=== PATIENT | female | born 1950 | race Caucasian/White ===

== ENCOUNTER 2017-11-06 23:11 | Emergency (ER) | payer MEDICARE, OTHER ==
[2017-11-06] MEDS ORDERED: ALBUTEROL NEBULIZED 2.5 MG/3 ML INHALATION STA (23:46)
--- NOTE | 2017-11-06 23:46 | ED ---
URI HPI - General Chief Complaint: Upper Respiratory Infection Stated Complaint: cough Time Seen by Provider: 11/06/17 23:24 Source: patient Mode of arrival: ambulatory Limitations: no limitations - History of Present Illness Initial Comments: This patient is a 67-year-old woman who presents to be evaluated for a cough. She states it has been going on for 2 weeks now. She states there is some occasional yellowish sputum. She denies associated fever or chills. She is not having any chest pain and there is not really any dyspnea associated. She did see her physician and was given guaifenesin with codeine syrup which she states only decreased a cough minimally. She states that she has gone through to hold bottles of this without much relief. MD Complaint: cough Onset/Timin -: week(s) Severity: moderate Consistency: constant Improves With: nothing Worsens With: nothing Associated Symptoms: denies other symptoms Treatments Prior to Arrival: "cold medicine" - Related Data Home Medications Medication Instructions Recorded Confirmed ALPRAZolam [Xanax] 0.25 mg PO BID PRN 11/06/17 11/06/17 Codeine Phosphate/Guaifenesin 5 ml PO Q6H PRN 11/06/17 11/06/17 [Cheratussin AC Syrup] Previous Rx's Medication Instructions Recorded Benztropine Mesylate [Cogentin] 2 mg PO DAILY #30 tab 02/23/14 Donepezil [Aricept] 10 mg PO HS #30 tab 02/23/14 Folic Acid 1 mg PO DAILY #30 tablet 02/23/14 Primidone [Mysoline] 25 mg PO BID #60 tablet 02/23/14 buPROPion SR [Wellbutrin SR] 150 mg PO BID #60 tablet.er 02/23/14 cloNIDine HCL [Catapres] 0.1 mg PO TID #90 tab 02/23/14 clonazePAM [KlonoPIN] 0.5 mg PO BID #60 tab 02/23/14 risperiDONE [RisperDAL] 2 mg PO BID #60 tab 02/23/14 Albuterol Inhaler [Ventolin Hfa 1 - 2 puff INHALATION Q6HR PRN #1 11/07/17 Inhaler] inhaler Azithromycin [Zithromax Z-pack] 250 mg PO DIRECTED #6 tab 11/07/17 predniSONE 60 mg PO DAILY #30 tab 11/07/17 Allergies Allergy/AdvReac Type Severity Reaction Status Date / Time No Known Allergies Allergy Verified 11/06/17 23:37 Review of Systems ROS Statement: Those systems with pertinent positive or pertinent negative responses have been documented in the HPI. ROS Other: All systems not noted in ROS Statement are negative. Constitutional: Denies: fever, chills Respiratory: Reports: cough. Denies: dyspnea, hemoptysis Cardiovascular: Denies: chest pain, palpitations, dyspnea on exertion, orthopnea , edema, syncope Gastrointestinal: Denies: abdominal pain, vomiting, diarrhea Musculoskeletal: Denies: back pain Neurological: Denies: headache Past Medical History Past Medical History: Dementia, Hypertension History of Any Multi-Drug Resistant Organisms: None Reported Past Surgical History: Appendectomy, Cholecystectomy Past Psychological History: Anxiety, Bipolar, Schizophrenia Smoking Status: Never smoker Past Alcohol Use History: None Reported Past Drug Use History: None Reported General Exam Limitations: no limitations General appearance: alert, in no apparent distress Head exam: Present: atraumatic Respiratory exam: Present: wheezes, other (Frequent nonproductive cough during exam). Absent: respiratory distress, rales, rhonchi, stridor Cardiovascular Exam: Present: regular rate, normal rhythm, normal heart sounds. Absent: systolic murmur, diastolic murmur, rubs, gallop GI/Abdominal exam: Present: soft. Absent: distended, tenderness, guarding, rebound, mass Extremities exam: Present: normal inspection, normal capillary refill. Absent: pedal edema, calf tenderness Back exam: Present: normal inspection. Absent: CVA tenderness (R), CVA tenderness (L) Skin exam: Present: warm, dry, intact, normal color. Absent: rash Course Vital Signs 11/06/17 11/07/17 11/07/17 23:15 00:17 00:26 Temperature 99 F 97.4 F L Pulse Rate 107 H 98 87 Respiratory 20 18 Rate Blood Pressure 112/67 119/58 O2 Sat by Pulse 94 L 100 Oximetry 11/07/17 11/07/17 11/07/17 00:27 00:34 00:44 Temperature Pulse Rate 98 98 100 Respiratory 20 Rate Blood Pressure O2 Sat by Pulse 97 Oximetry 11/07/17 01:13 Temperature Pulse Rate 70 Respiratory 18 Rate Blood Pressure 142/88 O2 Sat by Pulse 94 L Oximetry Disposition Clinical Impression: Bronchitis, Pneumonia Disposition: HOME SELF-CARE Condition: Fair Instructions: Pneumonia (ED) Prescriptions: Albuterol Inhaler [Ventolin Hfa Inhaler] 1 - 2 puff INHALATION Q6HR PRN #1 inhaler PRN Reason: Wheezing Azithromycin [Zithromax Z-pack] 250 mg PO DIRECTED #6 tab predniSONE 60 mg PO DAILY #30 tab Is patient prescribed a controlled substance at d/c from ED?: No Referrals: Codey Marley MD [Primary Care Provider] - 1-2 days
--- NOTE | 2017-11-07 00:25 | XR ---
EXAMINATION TYPE: XR chest 2V DATE OF EXAM: 11/07/2017 COMPARISON: 04/06/2016 HISTORY: Cough and difficulty breathing TECHNIQUE: Frontal and lateral views of the chest are obtained. FINDINGS: Heart and mediastinum are normal. There is some minimal infiltrate in the left upper lobe and right lower lobe there is no heart failure. The diaphragm is normal. Bony thorax is intact. There is a possible new density at the right lung apex. IMPRESSION: Mild bilateral pulmonary infiltrates are new compared to old exam. Normal heart. There is possible 2 cm new density at the right lung apex compared to old exam. Apical lordotic view is recommended to confirm or exclude a pulmonary mass.
[2017-11-07 00:28] VITALS: TEMP 97.4
[2017-11-07] MEDS ORDERED: predniSONE 20 MG TAB PO STA (00:33)
[2017-11-07] MEDS ORDERED: AZITHROMYCIN 500 MG TAB PO STA (00:33)
--- NOTE | 2017-11-07 00:54 | XR ---
EXAMINATION TYPE: XR chest w ap lordotic DATE OF EXAM: 11/07/2017 COMPARISON: 11/07/2017 HISTORY: Possible pulmonary mass TECHNIQUE: Frontal and lateral views of the chest are obtained. FINDINGS: Apical lordotic view of the chest shows no evidence of a mass at the right lung apex. The density over the right upper lobe apparently relates to some calcified cartilage at the anterior righ t first rib. IMPRESSION: No evidence of a right apical pulmonary mass.
[2017-11-07 01:13] VITALS: BP 142/88; PULSE 70; RESP 18
== END 2017-11-07 01:30 | disposition home or self-care (01) ==
LOC: EC 23:11
DX: J18.9 Pneumonia, unspecified organism (principal); J40 Bronchitis, not specified as acute or chronic
CPT/HCPCS: 94640 ×2; 71046; 71047; 99283; J7512

== ENCOUNTER 2019-11-18 18:46 | Emergency (ER) | payer MEDICARE, OTHER ==
[2019-11-18 19:59] LABS: Basophils # (A) 0.1 k/uL (0-0.2); Basophils % (A) 1 %; Eosinophils # (A) 0.1 k/uL (0-0.7); Eosinophils % (A) 3 %; HCT 35.9 % (34.0-46.0); HGB 12.6 gm/dL (11.4-16.0); Lymphocytes # (A) 1.6 k/uL (1.0-4.8); Lymphocytes % (A) 36 %; MCH 37.5 pg (25.0-35.0); MCHC 35.2 g/dL (31.0-37.0); MCV 106.6 fL (80.0-100.0); Macrocytosis Moderate; Monocytes # (A) 0.4 k/uL (0-1.0); Monocytes % (A) 8 %; Neutrophils # (A) 2.2 k/uL (1.3-7.7); Neutrophils % (A) 50 %; Platelet Count 154 k/uL (150-450); RBC 3.37 m/uL (3.80-5.40); RDW 14.2 % (11.5-15.5); WBC 4.5 k/uL (3.8-10.6)
--- NOTE | 2019-11-18 20:00 | ED ---
General Adult HPI - General Chief complaint: Psychiatric Symptoms Stated complaint: Mental Health Source: patient, family, RN notes reviewed Mode of arrival: ambulatory - History of Present Illness Initial comments: 69-year-old female with a past medical history of bipolar disorder presents to the emergency department for a chief complaint of racing thoughts. Patient has had racing thoughts and hasn't been sleeping or eating well for the past several weeks. In July patient was accidentally taken off her olanzapine as there was a mixup between the pharmacy and physician. She restarted on this last Friday but is still having the racing thoughts. States she is now hearing voices for the past week as well. She has had thoughts of harming herself but states she would never actually do this and does not have a plan. Patient has no other complaints at this time including shortness of breath, chest pain, abdominal pain, nausea or vomiting, headache, or visual changes. - Related Data Home Medications Medication Instructions Recorded Confirmed ALPRAZolam [Xanax] 0.5 mg PO TID PRN 11/18/19 11/18/19 Allopurinol [Zyloprim] 100 mg PO BID 11/18/19 11/18/19 FLUoxetine HCL [PROzac] 20 mg PO DAILY 11/18/19 11/18/19 Losartan Potassium 100 mg PO DAILY 11/18/19 11/18/19 Montelukast Sodium [Singulair] 10 mg PO HS 11/18/19 11/18/19 OLANZapine 15 mg PO HS 11/18/19 11/18/19 Omeprazole 20 mg PO BID 11/18/19 11/18/19 amLODIPine [Norvasc] 5 mg PO DAILY 11/18/19 11/18/19 Allergies Allergy/AdvReac Type Severity Reaction Status Date / Time No Known Allergies Allergy Verified 11/18/19 21:38 Review of Systems ROS Statement: Those systems with pertinent positive or pertinent negative responses have been documented in the HPI. ROS Other: All systems not noted in ROS Statement are negative. Past Medical History Past Medical History: Dementia, Hypertension History of Any Multi-Drug Resistant Organisms: None Reported Past Surgical History: Appendectomy, Cholecystectomy Past Psychological History: Anxiety, Bipolar, Schizophrenia Smoking Status: Never smoker Past Alcohol Use History: None Reported Past Drug Use History: None Reported General Exam General appearance: alert, in no apparent distress, anxious, other (Fidgeting) Head exam: Present: atraumatic, normocephalic, normal inspection Eye exam: Present: normal appearance, PERRL, EOMI. Absent: scleral icterus, conjunctival injection, periorbital swelling ENT exam: Present: normal exam, mucous membranes moist Neck exam: Present: normal inspection, full ROM. Absent: tenderness, meningismus, lymphadenopathy Respiratory exam: Present: normal lung sounds bilaterally. Absent: respiratory distress, wheezes, rales, rhonchi, stridor Cardiovascular Exam: Present: regular rate, normal rhythm, normal heart sounds. Absent: systolic murmur, diastolic murmur, rubs, gallop, clicks GI/Abdominal exam: Present: soft, normal bowel sounds. Absent: distended, tenderness, guarding, rebound, rigid Neurological exam: Present: alert, oriented X3, normal gait Psychiatric exam: Present: other (Slow to answer questions) Course Vital Signs 11/18/19 11/18/19 11/18/19 18:52 20:34 20:54 Temperature 98.7 F Pulse Rate 68 71 Respiratory 18 18 Rate Blood Pressure 123/77 143/97 O2 Sat by Pulse 97 96 94 L Oximetry 11/18/19 11/18/19 11/18/19 21:00 22:00 23:00 Temperature Pulse Rate 72 73 73 Respiratory 15 16 16 Rate Blood Pressure 143/97 142/82 135/86 O2 Sat by Pulse 95 93 L 97 Oximetry 11/19/19 01:00 Temperature 98.3 F Pulse Rate 81 Respiratory 16 Rate Blood Pressure 140/80 O2 Sat by Pulse Oximetry EKG Findings - EKG Comments: EKG Findings:: Normal sinus rhythm, ventricular rate 75, MO interval 140, QTc 520 Medical Decision Making - Medical Decision Making In order to be evaluated by psychiatry as patient is 69 she did need laboratory evaluation. CBC was unremarkable however CMP did reveal hypokalemia of 2.4 which patient has a history of. Magnesium was added which is also low at 1.2. Both magnesium and potassium were replaced. No EKG changes. She was seen by psychiatry who does not recommend inpatient admission. They had given her several follow-ups as well as a CT plan. Patient will be discharged home as electrolytes were replaced while patient was in the emergency room. She'll be given a few days of potassium as well. She'll return for any worsening symptoms. - Lab Data Result diagrams: 11/18/19 19:48 11/18/19 19:48 Lab Results 11/18/19 11/18/19 11/18/19 Range/Units 19:48 19:48 19:48 WBC 4.5 (3.8-10.6) k/uL RBC 3.37 L (3.80-5.40) m/uL Hgb 12.6 (11.4-16.0) gm/dL Hct 35.9 (34.0-46.0) % MCV 106.6 H (80.0-100.0) fL MCH 37.5 H (25.0-35.0) pg MCHC 35.2 (31.0-37.0) g/dL RDW 14.2 (11.5-15.5) % Plt Count 154 (150-450) k/uL Neutrophils % 50 % Lymphocytes % 36 % Monocytes % 8 % Eosinophils % 3 % Basophils % 1 % Neutrophils # 2.2 (1.3-7.7) k/uL Lymphocytes # 1.6 (1.0-4.8) k/uL Monocytes # 0.4 (0-1.0) k/uL Eosinophils # 0.1 (0-0.7) k/uL Basophils # 0.1 (0-0.2) k/uL Macrocytosis Moderate Sodium 135 L (137-145) mmol/L Potassium 2.4 L* (3.5-5.1) mmol/L Chloride 96 L (98-107) mmol/L Carbon Dioxide 32 H (22-30) mmol/L Anion Gap 7 mmol/L BUN 6 L (7-17) mg/dL Creatinine 0.77 (0.52-1.04) mg/dL Est GFR (CKD-EPI)AfAm >90 (>60 ml/min/1.73 sqM) Est GFR (CKD-EPI)NonAf 80 (>60 ml/min/1.73 sqM) Glucose 88 (74-99) mg/dL Calcium 8.4 (8.4-10.2) mg/dL Magnesium (1.6-2.3) mg/dL Total Bilirubin 0.8 (0.2-1.3) mg/dL AST 54 H (14-36) U/L ALT 29 (4-34) U/L Alkaline Phosphatase 79 (38-126) U/L Total Protein 5.9 L (6.3-8.2) g/dL Albumin 3.5 (3.5-5.0) g/dL Urine Color Light Yellow Urine Appearance Cloudy H (Clear) Urine pH 6.5 (5.0-8.0) Ur Specific [place] 1.002 (1.001-1.035) Urine Protein Negative (Negative) Urine Glucose (UA) Negative (Negative) Urine Ketones Negative (Negative) Urine Blood Negative (Negative) Urine Nitrite Negative (Negative) Urine Bilirubin Negative (Negative) Urine Urobilinogen <2.0 (<2.0) mg/dL Ur Leukocyte Esterase Moderate H (Negative) Urine RBC 3 (0-5) /hpf Urine WBC 5 (0-5) /hpf Ur Squamous Epith Cells 7 H (0-4) /hpf Urine Opiates Screen Not Detected (NotDetected) Ur Oxycodone Screen Not Detected (NotDetected) Urine Methadone Screen Not Detected (NotDetected) Ur Propoxyphene Screen Not Detected (NotDetected) Ur Barbiturates Screen Not Detected (NotDetected) U Tricyclic Antidepress Not Detected (NotDetected) Ur Phencyclidine Scrn Not Detected (NotDetected) Ur Amphetamines Screen Not Detected (NotDetected) U Methamphetamines Scrn Not Detected (NotDetected) U Benzodiazepines Scrn Detected H (NotDetected) Urine Cocaine Screen Not Detected (NotDetected) U Marijuana (THC) Screen Not Detected (NotDetected) 11/18/19 Range/Units 19:48 WBC (3.8-10.6) k/uL RBC (3.80-5.40) m/uL Hgb (11.4-16.0) gm/dL Hct (34.0-46.0) % MCV (80.0-100.0) fL MCH (25.0-35.0) pg MCHC (31.0-37.0) g/dL RDW (11.5-15.5) % Plt Count (150-450) k/uL Neutrophils % % Lymphocytes % % Monocytes % % Eosinophils % % Basophils % % Neutrophils # (1.3-7.7) k/uL Lymphocytes # (1.0-4.8) k/uL Monocytes # (0-1.0) k/uL Eosinophils # (0-0.7) k/uL Basophils # (0-0.2) k/uL Macrocytosis Sodium (137-145) mmol/L Potassium (3.5-5.1) mmol/L Chloride (98-107) mmol/L Carbon Dioxide (22-30) mmol/L Anion Gap mmol/L BUN (7-17) mg/dL Creatinine (0.52-1.04) mg/dL Est GFR (CKD-EPI)AfAm (>60 ml/min/1.73 sqM) Est GFR (CKD-EPI)NonAf (>60 ml/min/1.73 sqM) Glucose (74-99) mg/dL Calcium (8.4-10.2) mg/dL Magnesium 1.2 L (1.6-2.3) mg/dL Total Bilirubin (0.2-1.3) mg/dL AST (14-36) U/L ALT (4-34) U/L Alkaline Phosphatase (38-126) U/L Total Protein (6.3-8.2) g/dL Albumin (3.5-5.0) g/dL Urine Color Urine Appearance (Clear) Urine pH (5.0-8.0) Ur Specific [place] (1.001-1.035) Urine Protein (Negative) Urine Glucose (UA) (Negative) Urine Ketones (Negative) Urine Blood (Negative) Urine Nitrite (Negative) Urine Bilirubin (Negative) Urine Urobilinogen (<2.0) mg/dL Ur Leukocyte Esterase (Negative) Urine RBC (0-5) /hpf Urine WBC (0-5) /hpf Ur Squamous Epith Cells (0-4) /hpf Urine Opiates Screen (NotDetected) Ur Oxycodone Screen (NotDetected) Urine Methadone Screen (NotDetected) Ur Propoxyphene Screen (NotDetected) Ur Barbiturates Screen (NotDetected) U Tricyclic Antidepress (NotDetected) Ur Phencyclidine Scrn (NotDetected) Ur Amphetamines Screen (NotDetected) U Methamphetamines Scrn (NotDetected) U Benzodiazepines Scrn (NotDetected) Urine Cocaine Screen (NotDetected) U Marijuana (THC) Screen (NotDetected) Disposition Clinical Impression: Hypokalemia, Hypomagnesemia, Anxiety Disposition: HOME SELF-CARE Condition: Good Instructions (If sedation given, give patient instructions): Hypokalemia (ED) Additional Instructions: You were written a prescription for 2 days of potassium pills a day. This was sent electronically to your pharmacy. Please follow-up with your primary care provider in the next couple days for repeat potassium and magnesium levels. If patient has any worsening symptoms return here to the emergency room. Is patient prescribed a controlled substance at d/c from ED?: No Referrals: Codey Marley MD [Primary Care Provider] - 1-2 days Time of Disposition: 01:40
[2019-11-18 20:03] LABS: Appearance,Urine Cloudy (Clear); Bilirubin,Urine Negative (Negative); Blood,Urine Negative (Negative); Color,Urine Light Yellow; Glucose,Urine (UA) Negative (Negative); Ketones,Urine Negative (Negative); Leukocyte Esterase,Urine Moderate (Negative); Nitrite,Urine Negative (Negative); PH, Urine 6.5 (5.0-8.0); Protein,Urine Negative (Negative); RBC,Urine 3 /hpf (0-5); Specific Gravity,Urine 1.002 (1.001-1.035); Squamous Epithelial Cell,Urine 7 /hpf (0-4); Urobilinogen,Urine <2.0 mg/dL (<2.0); WBC,Urine 5 /hpf (0-5)
[2019-11-18 20:09] LABS: ALT 29 U/L (4-34); AST 54 U/L (14-36); African American GFR (CKD) >90 (>60 ml/min/1.73 sqM); Albumin 3.5 g/dL (3.5-5.0); Alkaline Phosphatase 79 U/L (38-126); Anion Gap 7 mmol/L; Blood Urea Nitrogen 6 mg/dL (7-17); Calcium 8.4 mg/dL (8.4-10.2); Carbon Dioxide 32 mmol/L (22-30); Chloride 96 mmol/L (98-107); Glucose 88 mg/dL (74-99); Non-African American GFR(CKD) 80 (>60 ml/min/1.73 sqM); Sodium 135 mmol/L (137-145); Total Bilirubin 0.8 mg/dL (0.2-1.3); Total Protein 5.9 g/dL (6.3-8.2)
[2019-11-18 20:10] LABS: Potassium 2.4 mmol/L (3.5-5.1)
[2019-11-18 20:13] LABS: Amphetamine Screen,Urine Not Detected (NotDetected); Barbiturate Screen,Urine Not Detected (NotDetected); Benzodiazepines Screen,Urine Detected (NotDetected); Cocaine Screen,Urine Not Detected (NotDetected); Methadone Screen, Urine Not Detected (NotDetected); Opiate Screen,Urine Not Detected (NotDetected); Oxycodone Screen, Urine Not Detected (NotDetected); Phencyclidine Screen,Urine Not Detected (NotDetected); Tricyclic Antidepressant,Urine Not Detected (NotDetected); Urn Cannabinoid Scrn Not Detected (NotDetected)
[2019-11-18] MEDS ORDERED: POTASSIUM CHLORIDE ER 20 MEQ TAB.ER PO STA (20:16)
[2019-11-18] MEDS ORDERED: SODIUM CHLORIDE 0.9% 500 ML 500 ML IV STA (20:17)
[2019-11-18] MEDS: POTASSIUM CHLORIDE 10 MEQ in WATER FOR INJECTION 1 100ML.BAG IVPB SCH ×3 (21:01→23:49)
[2019-11-18] MEDS: MAGNESIUM SULFATE-D5W PMX 1 GM in DEXTROSE/WATER 1 100ML.BAG IVPB SCH ×2 (21:08→22:19)
[2019-11-18 23:18] VITALS: RESP 16
[2019-11-19] MEDS ORDERED: MORPHINE SULFATE 4 MG/ML SYRINGE IVP STA (00:17)
[2019-11-19] MEDS: POTASSIUM CHLORIDE 10 MEQ in WATER FOR INJECTION 1 100ML.BAG IVPB SCH (00:28)
[2019-11-19 02:30] VITALS: BP 117/83; PULSE 82; TEMP 98
== END 2019-11-19 02:34 | disposition home or self-care (01) ==
LOC: EC 18:46
DX: F41.9 Anxiety disorder, unspecified (principal); E87.6 Hypokalemia; E83.42 Hypomagnesemia; I10 Essential (primary) hypertension; F31.9 Bipolar disorder, unspecified; Z79.899 Other long term (current) drug therapy
CPT/HCPCS: 82075; 36415; 93005; 80053; 83735; 85025; 81001; 80306; 99285; 96365; 96366 ×4; 96368; J3475; J3480

== ENCOUNTER 2019-11-28 21:07 | Inpatient (IN) | payer MEDICARE, OTHER ==
--- NOTE | 2019-11-28 22:05 | ED ---
Recheck HPI - General Chief Complaint: Recheck/Abnormal Lab/Rx Stated Complaint: Shaky,Not Eating Time Seen by Provider: 11/28/19 21:22 Source: patient, family Mode of arrival: ambulatory Limitations: no limitations - History of Present Illness Initial Comments: Patient is 69-year-old female presenting to emergency Department with chief complaint of shaking and not eating. Patient has history of bipolar and schizophrenia. Patient is treated with Prozac and Zyprexa. According to her daughter, in mid July there was an error with the pharmacy and she did not receive her Zyprexa for 2 months. Patient became symptomatic and eventually did not stay for multiple days in a row. The area was corrected on November 08 and the patient was restarted on the Zyprexa, however her dose was not gradually increased to therapeutic levels. Daughter states it has been 3 weeks since they started the medication, the patient continues to be symptomatic with continuous tremors and confusion. Daughter states the patient has been thinking of suicide and her son who also committed suicide about 20 years ago. Daughter states they went to their primary care, Dr. Marley, ordered additional lab tests. Dr. Pizarro, psychiatrist, is also involved in her care at this time. Patient does report suicidal thoughts at this time but no ideations. - Related Data Home Medications Medication Instructions Recorded Confirmed ALPRAZolam [Xanax] 0.5 mg PO TID PRN 11/18/19 11/18/19 Allopurinol [Zyloprim] 100 mg PO BID 11/18/19 11/18/19 FLUoxetine HCL [PROzac] 20 mg PO DAILY 11/18/19 11/18/19 Losartan Potassium 100 mg PO DAILY 11/18/19 11/18/19 Montelukast Sodium [Singulair] 10 mg PO HS 11/18/19 11/18/19 OLANZapine 15 mg PO HS 11/18/19 11/18/19 Omeprazole 20 mg PO BID 11/18/19 11/18/19 amLODIPine [Norvasc] 5 mg PO DAILY 11/18/19 11/18/19 Previous Rx's Medication Instructions Recorded Potassium Chloride ER [K-Dur 20] 20 meq PO DAILY #2 tab 11/21/19 Allergies Allergy/AdvReac Type Severity Reaction Status Date / Time No Known Allergies Allergy Verified 11/28/19 21:21 Review of Systems ROS Statement: Those systems with pertinent positive or pertinent negative responses have been documented in the HPI. ROS Other: All systems not noted in ROS Statement are negative. Past Medical History Past Medical History: Dementia, Hypertension History of Any Multi-Drug Resistant Organisms: None Reported Past Surgical History: Appendectomy, Cholecystectomy Past Psychological History: Anxiety, Bipolar, Schizophrenia Smoking Status: Never smoker Past Alcohol Use History: None Reported Past Drug Use History: None Reported General Exam Limitations: no limitations General appearance: alert, in no apparent distress, other (Generalized body tremors) Head exam: Present: atraumatic, normocephalic, normal inspection Eye exam: Present: normal appearance, PERRL, EOMI Pupils: Present: normal accommodation ENT exam: Present: normal exam, normal oropharynx, mucous membranes moist, TM's normal bilaterally, normal external ear exam Neck exam: Present: normal inspection, full ROM. Absent: tenderness Respiratory exam: Present: normal lung sounds bilaterally. Absent: respiratory distress, wheezes, rales Cardiovascular Exam: Present: regular rate, normal rhythm, normal heart sounds Extremities exam: Present: normal inspection, full ROM. Absent: tenderness Back exam: Present: normal inspection, full ROM Neurological exam: Present: alert, oriented X3, normal gait Psychiatric exam: Present: normal affect, normal mood Skin exam: Present: warm, dry, intact, normal color Course Vital Signs 11/28/19 11/28/19 21:19 23:20 Temperature 98.9 F Pulse Rate 118 H 107 H Respiratory 20 20 Rate Blood Pressure 149/85 168/84 O2 Sat by Pulse 97 96 Oximetry Medical Decision Making - Medical Decision Making Patient is a 61-year-old female presenting to emergency Department with chief complaint of shaking and not pain. Patient suddenly stopped taking Zyprexa and was symptomatically. Patient is not restarted the medication and has been on it on a high-dose for 3 weeks. I suspect she continues to be symptomatic because the dose was not gradually increased and she is not currently at the adequate therapeutic level. CBC is unremarkable. CMP reveals hypokalemia and hypomagnesemia. Patient started on oral and IV potassium. Magnesium replacement also started. UA is unremarkable. [facility] Case discussed with Admitting is Dr Orellana - Lab Data Result diagrams: 11/28/19 22:31 11/28/19 22:31 Lab Results 11/28/19 11/28/19 11/28/19 Range/Units 22:31 22:31 22:31 WBC 5.0 (3.8-10.6) k/uL RBC 3.38 L (3.80-5.40) m/uL Hgb 12.6 (11.4-16.0) gm/dL Hct 36.3 (34.0-46.0) % MCV 107.7 H (80.0-100.0) fL MCH 37.4 H (25.0-35.0) pg MCHC 34.8 (31.0-37.0) g/dL RDW 13.6 (11.5-15.5) % Plt Count 141 L (150-450) k/uL Neutrophils % (Manual) 47 % Lymphocytes % (Manual) 44 % Monocytes % (Manual) 9 % Neutrophils # (Manual) 2.35 (1.3-7.7) k/uL Lymphocytes # (Manual) 2.20 (1.0-4.8) k/uL Monocytes # (Manual) 0.45 (0-1.0) k/uL Nucleated RBCs 0 (0-0) /100 WBC Manual Slide Review Performed Large Platelets Present Macrocytosis Moderate Sodium 134 L (137-145) mmol/L Potassium 2.7 L* (3.5-5.1) mmol/L Chloride 99 (98-107) mmol/L Carbon Dioxide 26 (22-30) mmol/L Anion Gap 9 mmol/L BUN 9 (7-17) mg/dL Creatinine 0.72 (0.52-1.04) mg/dL Est GFR (CKD-EPI)AfAm >90 (>60 ml/min/1.73 sqM) Est GFR (CKD-EPI)NonAf 87 (>60 ml/min/1.73 sqM) Glucose 92 (74-99) mg/dL Calcium 8.6 (8.4-10.2) mg/dL Magnesium 1.0 L (1.6-2.3) mg/dL Total Bilirubin 0.8 (0.2-1.3) mg/dL AST 42 H (14-36) U/L ALT 23 (4-34) U/L Alkaline Phosphatase 79 (38-126) U/L Total Protein 6.1 L (6.3-8.2) g/dL Albumin 3.7 (3.5-5.0) g/dL Urine Color Yellow Urine Appearance Clear (Clear) Urine pH 6.5 (5.0-8.0) Ur Specific [place] 1.005 (1.001-1.035) Urine Protein Negative (Negative) Urine Glucose (UA) Negative (Negative) Urine Ketones Negative (Negative) Urine Blood Negative (Negative) Urine Nitrite Negative (Negative) Urine Bilirubin Negative (Negative) Urine Urobilinogen <2.0 (<2.0) mg/dL Ur Leukocyte Esterase Negative (Negative) - EKG Data EKG Comments: Sinus tach with PAC. Ventricular rate 114, HI 1:30, QRS 70, QTC 474. Disposition Clinical Impression: Hypokalemia, Hypomagnesemia Disposition: ADMITTED IP TO THIS HOSP Condition: Fair Additional Instructions: She will be admitted Is patient prescribed a controlled substance at d/c from ED?: No Referrals: Codey Marley MD [Primary Care Provider] - 1-2 days Time of Disposition: 23:36
[2019-11-28 22:52] LABS: Appearance,Urine Clear (Clear); Bilirubin,Urine Negative (Negative); Blood,Urine Negative (Negative); Color,Urine Yellow; Glucose,Urine (UA) Negative (Negative); Ketones,Urine Negative (Negative); Leukocyte Esterase,Urine Negative (Negative); Nitrite,Urine Negative (Negative); PH, Urine 6.5 (5.0-8.0); Protein,Urine Negative (Negative); Specific Gravity,Urine 1.005 (1.001-1.035); Urobilinogen,Urine <2.0 mg/dL (<2.0)
[2019-11-28 22:53] LABS: HCT 36.3 % (34.0-46.0); HGB 12.6 gm/dL (11.4-16.0); MCH 37.4 pg (25.0-35.0); MCHC 34.8 g/dL (31.0-37.0); MCV 107.7 fL (80.0-100.0); Macrocytosis Moderate; Mean Platelet Volume 11.3; Platelet Count 141 k/uL (150-450); RBC 3.38 m/uL (3.80-5.40); RDW 13.6 % (11.5-15.5)
[2019-11-28 23:05] LABS: ALT 23 U/L (4-34); AST 42 U/L (14-36); African American GFR (CKD) >90 (>60 ml/min/1.73 sqM); Albumin 3.7 g/dL (3.5-5.0); Alkaline Phosphatase 79 U/L (38-126); Anion Gap 9 mmol/L; Blood Urea Nitrogen 9 mg/dL (7-17); Calcium 8.6 mg/dL (8.4-10.2); Carbon Dioxide 26 mmol/L (22-30); Chloride 99 mmol/L (98-107); Glucose 92 mg/dL (74-99); Non-African American GFR(CKD) 87 (>60 ml/min/1.73 sqM); Sodium 134 mmol/L (137-145); Total Bilirubin 0.8 mg/dL (0.2-1.3); Total Protein 6.1 g/dL (6.3-8.2)
[2019-11-28 23:07] LABS: Potassium 2.7 mmol/L (3.5-5.1)
[2019-11-28] MEDS ORDERED: POTASSIUM CHLORIDE ER 20 MEQ TAB.ER PO STA (23:10)
[2019-11-28] MEDS ORDERED: POTASSIUM CHLORIDE 20 MEQ in WATER FOR INJECTION 1 100ML.BAG IVPB STA (23:11)
[2019-11-28 23:12] LABS: Large Platelets Present; Monocytes # (M) 0.45 k/uL (0-1.0); Neutrophils # (M) 2.35 k/uL (1.3-7.7); Neutrophils % (M) 47 %; Nucleated Red Blood Cells 0 /100 WBC (0-0); Total Cells Counted 100
[2019-11-28] MEDS: MAGNESIUM SULFATE-D5W PMX 1 GM in DEXTROSE/WATER 1 100ML.BAG IVPB SCH (23:21)
[2019-11-28] MEDS ORDERED: ACETAMINOPHEN TAB 325 MG TAB PO PRN (23:31)
[2019-11-28] MEDS ORDERED: MORPHINE SULFATE 4 MG/ML SYRINGE IV PRN (23:31)
[2019-11-28] MEDS ORDERED: NALOXONE 0.4 MG/ML 1 ML VIAL IV PRN (23:31)
[2019-11-28] MEDS ORDERED: SODIUM CHLORIDE 0.9% 1,000 ML IV SCH (23:45)
[2019-11-29] MEDS: MAGNESIUM SULFATE-D5W PMX 1 GM in DEXTROSE/WATER 1 100ML.BAG IVPB SCH ×2 (00:26→01:57)
[2019-11-29] MEDS: POTASSIUM CHLORIDE 10 MEQ in WATER FOR INJECTION 1 100ML.BAG IVPB SCH ×2 (02:53→04:07)
[2019-11-29 07:52] LABS: Magnesium 2.1 mg/dL (1.6-2.3); Potassium 3.3 mmol/L (3.5-5.1)
[2019-11-29] MEDS ORDERED: IBUPROFEN 800 MG TAB PO PRN (09:01)
[2019-11-29] MEDS: POTASSIUM CHLORIDE ER 20 MEQ TAB.ER PO SCH ×2 (09:04→10:41)
[2019-11-29] MEDS: FLUoxetine HCL 20 MG CAP PO SCH (09:09)
[2019-11-29] MEDS: LOSARTAN 50 MG TAB PO SCH (09:09)
[2019-11-29] MEDS: amLODIPine 5 MG TAB PO SCH (09:09)
[2019-11-29] MEDS: ALPRAZolam 0.5 MG TAB PO PRN ×2 (09:14→18:04)
--- NOTE | 2019-11-29 09:21 | P.HPIM ---
History of Present Illness H&P Date: 11/29/19 Chief Complaint: Weakness, shakes This is a 69-year-old female patient of Dr. Marley with past medical history of hypertension, dementia, bipolar disorder, schizophrenia. Patient had a previous hospitalization to the mental health unit in 2013 which time she was treated for psychosis, dementia with behavioral disturbances. Patient gives history that she saw Dr. Humphrey "a long time ago". She had an overdose in 1998. She follows with Dr. Marley on a regular basis and she states that he prescribes Zyprexa. There apparently was an air in the pharmacy in July and patient did not receive her Zyprexa for 2 months. This was corrected on November 08 the patient was restarted on Zyprexa however her dose was not gradually increased to therapeutic levels. Despite starting back on Zyprexa, patient continued to have tremors and confusion. Patient is now hearing voices that are telling her to kill herself. Patient states that she would take pills if she were going to do this as she has tried overdose in the past. Patient was seen in the emergency center and she has been afebrile, initial blood pressure 149/85, pulse ox 97% on room air, heart rate 118. WBC 5, hemoglobin 12.6, platelet count 141. Sodium 134, potassium 2.7, chloride 99, CO2 26, BUN 9, creatinine 0.72. Magnesium 1.0, AST 42, total protein 6.1, albumin 3.7. Urinalysis clear with nitrate and l eukoesterase negative. EKG reveals sinus rhythm with no acute ST changes. Magnesium and potassium were replaced and patient was started on IV fluids, admitted to the [facility] floor, psychiatry consult in place. Consult added for neurology regarding tremor. Patient currently is hearing voices. She continues to complain of weakness shakiness and frequent falls. She was recently treated for UTI with antibiotics and took all of her course in a matter of couple days. Patient does relate that she drinks alcohol to the point of passing out about one time per week. automotive leasing sales representative is at the bedside. Review of Systems Constitutional: No fever, no chills, no night sweats. No weight change. Reports weakness, reports fatigue. No daytime sleepiness. EENT: No headache. No blurred vision or double vision, no loss of vision. No loss of Hearing, no dizziness. No nasal drainage or congestion. No epistaxis. No sore throat. Lungs: No shortness of breath, cough, no sputum production. No wheezing. Cardiovascular: No chest pain, no lower extremity edema. No palpitations. No paroxysmal nocturnal dyspnea. No orthopnea. No lightheadedness or dizziness. No syncopal episodes. Abdominal: No abdominal pain. No nausea, vomiting. No diarrhea. No constipation. No bloody or tarry stools. No loss of appetite. Genitourinary: No dysuria, increased frequency, urgency. No urinary retention. Musculoskeletal: No myalgias. Reports muscle weakness, reports gait dysf unction, reports frequent falls. No back pain. No neck pain. Integumentary: No wounds, no lesions. No rash or pruritus. No unusual bruising. No change in hair or nails. Neurologic: No aphasia. No facial droop. No change in mentation. No head injury. No headache. No paralysis. No paresthesia. Reports tremors Psychiatric: No depression. No anxiety. No mood swings. Reports hallucinations. Reported suicidal ideation. Endocrine: No abnormal blood sugars. No weight change. No excessive sweating or thirst. No cold intolerance. Physical Examination Gen: This is a 69-year-old female. She is resting in bed and appears to be comfortable and in no acute distress. Patient is cooperative. automotive leasing sales representative is at bedside. HEENT: Head is atraumatic, normocephalic. Pupils equal, round. Sclerae is anicteric. NECK: Supple. No JVD. No lymphadenopathy. No thyromegaly. LUNGS: Clear to auscultation. No wheezes or rhonchi. No intercostal retractions. HEART: Regular rate and rhythm. No murmur. ABDOMEN: Soft. Bowel sounds are present. No masses. No tenderness. EXTREMITIES: No pedal edema. No calf tenderness. Dorsalis pedis +2 bilaterally. NEUROLOGICAL: Patient is awake, alert and oriented x3. Cranial nerves 2 through 12 are grossly intact. Assessment and Plan 1. Acute psychoses with hallucinations and suicidal ideation. Patient admitted to the [facility] floor. Consult with psychiatry. Continue product safety administrator. Resume Prozac 20 mg daily, Xanax or 0.5 mg 3 times daily as needed, Zyprexa 15 mg at bedtime. Stop IV morphine. 2. History of bipolar disorder, possible schizophrenia. Psychiatry consult. 3. Generalized weakness, frequent falls. Continue medical treatment, PT and OT consults. 4. Electrolyte abnormalities with hypokalemia and hypomagnesemia, status post replacement. Recheck electrolytes in the morning. Continue potassium 20 mEq daily. 5. Hypertension. Continue amlodipine 5 mg daily, losartan 100 mg daily. 6. Chronic gout. Continue allopurinol 100 mg twice daily. 7. Gastroesophageal reflux disease and GI prophylaxis. Continue omeprazole 20 g twice daily. 8. DVT prophylaxis. Heparin subcu. 9. COVID-19 testing in process. Patient will be admitted to the hospital for a minimum of 2 night stay. CODE STATUS: Full code Discharge plan: Anticipate need for inpatient psychiatric services. Social work consult. Impression and plan of care have been directed as dictated by the signing physician. Cheyanne Tena nurse practitioner acting as scribe for signing physician. Past Medical History Past Medical History: Dementia, GERD/Reflux, Hypertension History of Any Multi-Drug Resistant Organisms: None Reported Past Surgical History: Appendectomy, Cholecystectomy, Tubal Ligation Past Anesthesia/Blood Transfusion Reactions: No Reported Reaction Past Psychological History: Anxiety, Bipolar, Schizophrenia Smoking Status: Never smoker Past Alcohol Use History: Occasional Additional Past Alcohol Use History / Comment(s): Patient denies any history of smoking. She states she drinks alcohol at least 1 day per week to the point of passing out. She denies any marijuana or street drug use. She is and lives at home with her . 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 Past Drug Use History: None Reported - Past Family History Daughter(s) Family Medical History: No Reported History Additional Family Medical History / Comment(s): The patient has one daughter with no major medical problems. Mother Additional Family Medical History / Comment(s): Mother in her 70s from a myocardial infarction. Father Additional Family Medical History / Comment(s): Father in his 50s from alcoholic liver disease. Son(s) Additional Family Medical History / Comment(s): Patient has one son that from myocardial infarction. Brother(s) Additional Family Medical History / Comment(s): Patient has 2 brothers one is living and one has from a myocardial infarction. Patient has one sister from complications of diabetes. Medications and Allergies Home Medications Medication Instructions Recorded Confirmed Type ALPRAZolam [Xanax] 0.5 mg PO TID PRN 11/18/19 11/29/19 History Allopurinol [Zyloprim] 100 mg PO BID 11/18/19 11/29/19 History FLUoxetine HCL [PROzac] 20 mg PO DAILY 11/18/19 11/29/19 History Losartan Potassium 100 mg PO DAILY 11/18/19 11/29/19 History Montelukast Sodium [Singulair] 10 mg PO HS 11/18/19 11/29/19 History OLANZapine 15 mg PO HS 11/18/19 11/29/19 History Omeprazole 20 mg PO BID 11/18/19 11/29/19 History amLODIPine [Norvasc] 5 mg PO DAILY 11/18/19 11/29/19 History Potassium Chloride ER [K-Dur 20] 20 meq PO DAILY #2 tab 11/21/19 11/29/19 Rx Ergocalciferol (Vitamin D2) 2,000 units PO DAILY 11/29/19 11/29/19 History [Vitamin D2] Ibuprofen [Motrin] 800 mg PO Q6HR PRN 11/29/19 11/29/19 History Iron 2 tablet PO DAILY 11/29/19 11/29/19 History [place]-3 Fatty Acids/Fish Oil [Fish 1,000 cap PO DAILY 11/29/19 11/29/19 History Oil 1,000 mg Softgel] Vitamin B Complex 1 each PO DAILY 11/29/19 11/29/19 History Allergies Allergy/AdvReac Type Severity Reaction Status Date / Time No Known Allergies Allergy Verified 11/29/19 08:14 Physical Exam Vitals: Vital Signs Temp Pulse Pulse Resp BP BP Pulse Ox 11/29/19 05:00 97.5 F L 107 H 18 167/94 96 11/29/19 01:02 98 F 82 16 127/73 95 11/29/19 00:27 98.8 F 89 18 129/76 94 L 11/28/19 23:20 107 H 20 168/84 96 11/28/19 21:19 98.9 F 118 H 20 149/85 97 Intake and Output 11/28/19 11/29/19 11/29/19 22:59 06:59 14:59 Intake Total 1690 Balance 1690 Intake: Intake, IV Titration 1100 Amount Magnesium Sulfate-D5w Pmx 300 1 gm In Dextrose/Water 1 100ml.bag @ 100 mls/hr IVPB Q1H [facility] Rx#: [id number] Potassium Chloride 10 meq 200 In Water For Injection 1 100ml.bag @ 100 mls/hr IVPB Q1H [facility] Rx#: [id number] Sodium Chloride 0.9% 1, 600 000 ml @ 75 mls/hr IV . [id number] [facility] Rx#:[id number] Oral 590 Other: Voiding Method Toilet # Voids 2 Weight 63.14 kg 60 kg Results CBC & Chem 7: 11/28/19 22:31 11/29/19 07:09 Labs: Abnormal Lab Results - Last 24 Hours (Table) 11/28/19 11/28/19 11/29/19 Range/Units 22:31 22:31 07:09 RBC 3.38 L (3.80-5.40) m/uL MCV 107.7 H (80.0-100.0) fL MCH 37.4 H (25.0-35.0) pg Plt Count 141 L (150-450) k/uL Sodium 134 L (137-145) mmol/L Potassium 2.7 L* 3.3 L (3.5-5.1) mmol/L Magnesium 1.0 L (1.6-2.3) mg/dL AST 42 H (14-36) U/L Total Protein 6.1 L (6.3-8.2) g/dL Thrombosis Risk Factor Assmnt - Choose All That Apply Other Risk Factors: No Other congenital or acquired thrombophilia - If yes, enter type in comment: No
[2019-11-29 14:32] VITALS: BMI 25.0
--- NOTE | 2019-11-29 15:43 | P.CN ---
Psychiatric Consult - . Consult date: 11/29/19 Consult:: IDENTIFYING DATA: She is a 69-year-old female who presented to the ED with complaints of confusion, increased tremor and suicidal thoughts. She was admitted to medicine unit for correction of electrolyte abnormalities and generalized weakness. HISTORY OF PRESENT ILLNESS: I reviewed the medical record to interview the patient. She stated that she had been confused about her medications and had not been taking olanzapine or Xanax as it had been prescribed. She thought she had not taken Xanax for about 2 days prior to her presentation to our ED. She described increasing tremor, confusion and anxiety after she stopped a Xanax. On the day of admission, her went shopping. She was home where she she began to her the voice of her and his sister telling her to "get out". She also described thinking about her son and having increasing thoughts of suicide. She thought about overdosing on her medications but realized that if she were, she would "end up back on the psychiatric unit". Instead, she spoke with her daughter who brought her to the ED. Since her admission to the medicine unit she has resumed her outpatient dose of olanzapine 50 mg at bedtime, Prozac 20 mg daily and Xanax 0.5 mg 3 times a day. She noted a marked decrease of anxiety, confusion and tremor after she took the Xanax. During our interview, she denied having thoughts of or suicide. She de nied experiencing auditory hallucinations. She talked about planning to meet with her outpatient psychiatrist, Dr. Humphrey, [facility] to discuss her medications. She feels chronically depressed. She describes fluctuating levels of depression and intermittent thoughts of suicide. She describes fluctuating levels of anxiety. She is clearly not compliant with prescribed psychotropic medications. She denied that she is currently experiencing auditory, visual or olfactory hallucinations, ideas reference, thought insertion, thought broadcasting etc. She drinks alcohol "occasionally" but denied use of other drugs to get high, help her sleep or change her mood. The UDS and BAL are not available for review. PAST PSYCHIATRIC HISTORY: She is had 2 psychiatric hospitalizations. She was admitted to [facility] and to our psychiatric unit in 2013. She presented with complaints of auditory hallucinations. Her discharge diagnosis was psychosis NOS and dementia with behavioral disturbances. Her discharge medications included Cogentin 2 mg daily, Aricept 10 mg daily, Wellbutrin SR 150 mg twice a day, Klonopin 0.5 mg twice a day and risperidone 2 mg twice a day. She is active with [facility]. PAST MEDICAL HISTORY: She has history of a dementia and hypertension. ALLERGIES: NO KNOWN DRUG ALLERGIES SUBSTANCE USE HISTORY: She denied history of substance use problems. FAMILY PSYCHIATRIC/SUBSTANCE USE HISTORY: She has distant relatives with history of psychiatric problems SOCIAL HISTORY: She was born and raised in [place]. She denied history of physical, sexual or emotional abuse. She lives with her . She was never employed. She had 2 children. Her son at age 17 from heart disease. MENTAL STATUS EXAM: She presented as a frail appearing elderly female with white hair. She is sitting in bed comfortably. She made eye contact and attended to the interview. She had no distinction features are prominent physi claudio abnormalities. She had a blunted facial expression. She was alert and oriented to person, place and time. She had intermittently restless movements of her arms and legs. Her speech was spontaneous with decreased rate, volume and rhythm. Her affect was blunted but stable and appropriate. She denied current suicidal ideation or wishes. She denied homicidal ideation. She denied feeling hopeless, helpless or worthless. She ruminated about the circumstances to let this hospitalization and the of her son. She did not express clear ideas reference, paranoid ideation or delusions. Her thinking was concrete. Associations are goal-directed. She denied hallucinations and did not appear to responding to internal stimuli. IMPRESSIONS: She is a 69-year-old woman who has a history of a psychotic disorder and possible dementia. [facility] with [facility] change her behavior with confusion, increased tremor, increased anxiety and thoughts of suicide. She admits to not being compliant with her medications including olanzapine and Xanax. Since admission to the hospital she's been receiving her medications as scheduled and described markedly for anxiety. She also described absence of suicidal thoughts, decreased confusion and decreased anxiety. There is no indication for inpatient psychiatric treatment this time. However, she would benefit from continued outpatient mental health services DIAGNOSIS: Chronic depressive disorder, poor compliance with psychiatric treatment, benzodiazepine withdrawal, rule out major neurocognitive disorder w ith behavioral disturbances RECOMMENDATION: Continue psychotropic medications-Xanax 0.5 mg 3 times a day when necessary for anxiety, Prozac 20 mg daily and Zyprexa 50 mg at bedtime. Psychiatry will follow. 11/29/19 15:25
[2019-11-29] MEDS: PANTOPRAZOLE 40 MG TABLET PO SCH (18:01)
--- NOTE | 2019-11-29 19:25 | P.CNNES ---
History of Present Illness Consult date: 11/29/19 Requesting physician: Cheyanne Tena Reason for Consult: Tremors History of Present Illness: Patient is a 69 her female, with history of tremors, confusion, anxiety, suicidal ideation after she stopped Xanax. Patient has been seen by psychiatrist, who has diagnosed with psychotic disorder and possible dementia. It was felt patient was not compliant with her medication. Neurology was consulted for tremors. I spent at least 20-30 minutes in obtaining history. Patient continues to change statement, then finally admits and states "I'm confused". Patient states her tremor started 1-2 weeks ago. She states that she never had tremors before. Patient then states that her tremor started in the hands in 1998 when she came to the hospital. Then she states that the tremors have started in the feet and hands, 2 weeks ago. Patient states she started drinking 2 weeks ago but then said she quit drinking 2 weeks ago. In any case, she admits to drinking 3 cans of wine every day since age 19. She also admits to taking CBD liquid recently before the tremor started. Patient states that she took CBD a week ago although she claims that tremors started 2 weeks ago, but then she states started in 1998. She jumps from 2 weeks to 20 years in her statement. Patient is a very poor historian. She probably confabulates. Patient states she has never smoked tobacco, or used drugs. EKG shows sinus tachycardia with PACs. Patient had a previous MRI of brain without contrast on 01/20/2014 which revealed mild to moderate nonspecific white matter changes likely on the basis of chronic small vessel ischemia. Patient's blood test shows normal WBC hemoglobin 12.6 with elevated MCV 107.7. Platelets 141. Sodium 134 potassium 3.3 renal functions are normal. AST mildly elevated 42, ALT normal 23. UA negative. Her B12 was normal 425 on 06/29/2019. Review of Systems Denies headache, problem with the vision, hoarseness, sore throat or dysphagia. Denies any numbness tingling focal weakness. Denies any back or neck pain. Denies abdominal pain nausea vomiting diarrhea. Denies chest pain shortness of breath. Please refer to HPI for details. All other review of systems negative. Past Medical History Past Medical History: Dementia, GERD/Reflux, Hypertension History of Any Multi-Drug Resistant Organisms: None Reported Past Surgical History: Appendectomy, Cholecystectomy, Tubal Ligation Past Anesthesia/Blood Transfusion Reactions: No Reported Reaction Past Psychological History: Anxiety, Bipolar, Schizophrenia Smoking Status: Never smoker Past Alcohol Use History: Occasional Additional Past Alcohol Use History / Comment(s): Patient denies any history of smoking. She states she drinks alcohol at least 1 day per week to the point of passing out. She denies any marijuana or street drug use. She is and lives at home with her . 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 Past Drug Use History: None Reported - Past Family History Daughter(s) Family Medical History: No Reported History Additional Family Medical History / Comment(s): The patient has one daughter with no major medical problems. Mother Additional Family Medical History / Comment(s): Mother in her 70s from a myocardial infarction. Father Additional Family Medical History / Comment(s): Father in his 50s from alcoholic liver disease. Son(s) Additional Family Medical History / Comment(s): Patient has one son that from myocardial infarction. Brother(s) Additional Family Medical History / Comment(s): Patient has 2 brothers one is living and one has from a myocardial infarction. Patient has one sister from complications of diabetes. Medications and Allergies Home Medications Medication Instructions Recorded Confirmed Type ALPRAZolam [Xanax] 0.5 mg PO TID PRN 11/18/19 11/29/19 History Allopurinol [Zyloprim] 100 mg PO BID 11/18/19 11/29/19 History FLUoxetine HCL [PROzac] 20 mg PO DAILY 11/18/19 11/29/19 History Losartan Potassium 100 mg PO DAILY 11/18/19 11/29/19 History Montelukast Sodium [Singulair] 10 mg PO HS 11/18/19 11/29/19 History OLANZapine 15 mg PO HS 11/18/19 11/29/19 History Omeprazole 20 mg PO BID 11/18/19 11/29/19 History amLODIPine [Norvasc] 5 mg PO DAILY 11/18/19 11/29/19 History Potassium Chloride ER [K-Dur 20] 20 meq PO DAILY #2 tab 11/21/19 11/29/19 Rx Ergocalciferol (Vitamin D2) 2,000 units PO DAILY 11/29/19 11/29/19 History [Vitamin D2] Ibuprofen [Motrin] 800 mg PO Q6HR PRN 11/29/19 11/29/19 History Iron 2 tablet PO DAILY 11/29/19 11/29/19 History [place]-3 Fatty Acids/Fish Oil [Fish 1,000 cap PO DAILY 11/29/19 11/29/19 History Oil 1,000 mg Softgel] Vitamin B Complex 1 each PO DAILY 11/29/19 11/29/19 History Allergies Allergy/AdvReac Type Severity Reaction Status Date / Time No Known Allergies Allergy Verified 11/29/19 08:14 Physical Examination - Vital Signs Vital Signs: Vital Signs Temp Pulse Pulse Resp BP BP Pulse Ox 11/29/19 11:49 98.1 F 84 18 119/58 94 L 11/29/19 05:00 97.5 F L 107 H 18 167/94 96 11/29/19 01:02 98 F 82 16 127/73 95 11/29/19 00:27 98.8 F 89 18 129/76 94 L 11/28/19 23:20 107 H 20 168/84 96 11/28/19 21:19 98.9 F 118 H 20 149/85 97 Intake and Output 11/29/19 11/29/19 11/29/19 06:59 14:59 22:59 Intake Total 1690 300 Balance 1690 300 Intake: Intake, IV Titration 1100 300 Amount Magnesium Sulfate-D5w Pmx 300 1 gm In Dextrose/Water 1 100ml.bag @ 100 mls/hr IVPB Q1H [facility] Rx#: [id number] Potassium Chloride 10 meq 200 In Water For Injection 1 100ml.bag @ 100 mls/hr IVPB Q1H [facility] Rx#: [id number] Sodium Chloride 0.9% 1, 600 300 000 ml @ 75 mls/hr IV . [id number] [facility] Rx#:[id number] Oral 590 Other: Voiding Method Toilet # Voids 2 3 Weight 60 kg 60 kg On examination patient is an elderly female, in no acute distress. Patient is alert awake fully oriented. Patient knows it is 11/29/2019 and that she is in [facility] in [facility] and name of the current president. Speech and language functions are normal. Her speech is slightly hoarse. Attention, concentration and fund of knowledge is poor. Patient confabulates. On cranial examination pupils are round and reactive to light, visual hassan are full. Extra comes are intact with no nystagmus. Face is symmetric, tongue protrudes to the midline. Palatal Elevation and Sensation Normal. Hearing and Shoulder Shrug Normal. On Muscle Strength Testing There Is No Pronator Drift and the Strength Is Normal in Arms and Legs Distally and Proximally. Reflexes Are 1+ and Plantars Are Downgoing. Sensory Touch Is Equal. Patient Has Mild to Moderate Fine Tremors of outstretched hands. Patient has mild to moderate fine tremors for [id number] testing. Patient has some tremors at rest of hands, but more so of the feet. Patient made spiral, which had mild shakiness. Her handwriting was fairly large size. Tone is normal. No bradykinesia. Bulk of muscles normal. Sensations are equal. 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 Patient has long-standing history of alcoholism, which probably is contributing to these tremors. Patient also states that she quit drinking few days ago, therefore there may be some component of withdrawal at this time. Rule out hyperthyroidism, rule out underlying essential tremors. Patient is also on olanzapine, which can produce parkinsonian tremor. Patient does have some component of resting tremor as well although predominant tremor is essential type. No other clinical features of Parkinson's disease or parkinsonism. Patient also consumed CBD liquid, which may have aggravated the tremors. * Cognitive impairment, confabulation. Rule out thiamine deficiency. Rule out alcoholic dementia. Plan: * We will check TFTs, B1, B6, MMA, RPR. * We will start her on thiamine 100 mg daily, folate 1 mg daily and multivitamins. * I would suggest patient follow up with neurologist as an outpatient. She may benefit from ANDRIA scan to further identify the type of tremors. * Suggest abstinence from alcoholism. * Neurology will follow.
[2019-11-29] MEDS: ALLOPURINOL 100 MG TAB PO SCH (20:13)
[2019-11-29] MEDS: FOLIC ACID 1 MG TAB PO SCH (20:13)
[2019-11-29] MEDS: THIAMINE 100 MG TAB PO SCH (20:14)
[2019-11-29] MEDS: MULTIVITAMINS, THERA 1 EACH TAB PO SCH (20:14)
[2019-11-29] MEDS: HEPARIN SODIUM,PORCINE 5,000 UNIT/ML 1 ML VIAL SQ SCH (20:14)
[2019-11-29] MEDS ORDERED: OLANZapine 5 MG TAB PO SCH (21:00)
[2019-11-29] MEDS ORDERED: MONTELUKAST 10 MG TAB PO SCH (21:00)
[2019-11-30 04:48] VITALS: RESP 16
[2019-11-30 05:23] LABS: Amphetamine Screen,Urine Not Detected (NotDetected); Barbiturate Screen,Urine Not Detected (NotDetected); Benzodiazepines Screen,Urine Detected (NotDetected); Cocaine Screen,Urine Not Detected (NotDetected); Methadone Screen, Urine Not Detected (NotDetected); Opiate Screen,Urine Not Detected (NotDetected); Oxycodone Screen, Urine Not Detected (NotDetected); Phencyclidine Screen,Urine Not Detected (NotDetected); Tricyclic Antidepressant,Urine Not Detected (NotDetected); Urn Cannabinoid Scrn Not Detected (NotDetected)
[2019-11-30] MEDS: MULTIVITAMINS, THERA 1 EACH TAB PO SCH (07:35)
[2019-11-30] MEDS: LOSARTAN 50 MG TAB PO SCH (07:35)
[2019-11-30] MEDS: FOLIC ACID 1 MG TAB PO SCH (07:35)
[2019-11-30] MEDS: ALLOPURINOL 100 MG TAB PO SCH (07:35)
[2019-11-30] MEDS: HEPARIN SODIUM,PORCINE 5,000 UNIT/ML 1 ML VIAL SQ SCH (07:36)
[2019-11-30] MEDS: THIAMINE 100 MG TAB PO SCH (07:36)
[2019-11-30] MEDS: amLODIPine 5 MG TAB PO SCH (07:36)
[2019-11-30] MEDS: FLUoxetine HCL 20 MG CAP PO SCH (07:36)
[2019-11-30] MEDS: PANTOPRAZOLE 40 MG TABLET PO SCH (07:36)
[2019-11-30] MEDS: ALPRAZolam 0.5 MG TAB PO PRN ×2 (07:36→14:28)
[2019-11-30] MEDS ORDERED: CHOLECALCIFEROL 1,000 UNIT TAB PO SCH (09:00)
[2019-11-30] MEDS ORDERED: OMEGA PO SCH (09:00)
[2019-11-30] MEDS ORDERED: POTASSIUM CHLORIDE ER 20 MEQ TAB.ER PO SCH (09:00)
[2019-11-30] MEDS ORDERED: IRON PO SCH (09:00)
[2019-11-30] MEDS ORDERED: NON FORMULARY DRUG (Vitamin B Complex [Vitamin B Complex] 1 EACH) PO SCH (09:00)
[2019-11-30] MEDS ORDERED: FISH OIL PO SCH (09:00)
[2019-11-30] MEDS ORDERED: FATTY ACIDS PO SCH (09:00)
[2019-11-30 11:43] VITALS: BP 122/71; PULSE 88; TEMP 98.4
--- NOTE | 2019-11-30 14:50 | P.CON ---
Consult Note - . Consult date: 11/30/19 Assessment/Plan:: Clinical Problems: Chronic depressive disorder, poor compliance with psychiatric treatment, benzodiazepine withdrawal, rule out major neurocognitive disorder with behavioral disturbances Interim history: I reviewed the medical record and interviewed the patient. She was laying comfortably in bed. She had no complaints or concerns. Her was also present and expressed concern about her ongoing tremors. She reported continued feelings depression but denied suicidal ideation and wishes. She feels much less anxious than she did when she first was admitted to the hospital. She denied signs and symptoms suggestive of benzodiazepine withdrawal. She denied experiencing such psychotic symptoms as hallucinations, paranoia and thought disturbances. Mental status exam: She presented as a tremulous and frail 69-year-old female who was resting comfortably in bed. She made eye contact and attended to interview. She had no prominent physical abnormalities. She had a depressed facial expression. She was alert and oriented to person, place and time. She showed psychomotor retardation and tremor primarily of the legs. Her speech was not spontaneous and had decreased rate, rhythm and volume. Affect was depressed and slightly reactive. She denied suicidal ideation and wishes. She denied homicidal ideation. She denied feeling hopeless, helpless or worthless. She denies express ideas reference, paranoid ideation or delusions. His thinking was concrete. Associations were coherent, logical and goal directed. She denied hallucinations and did not appear to be responding to internal sti muli. Assessment: Her overall clinical condition has improved modestly from admission. She no longer has suicidal ideation or uncontrollable anxiety. She has chronic feelings of depression and would benefit from continued outpatient mental health treatment. Plan: Discontinue one-to-one. There is no indication for transfer the psychiatric unit. Continue current psychotropic medications, Xanax 0.5 mg 3 times a day when necessary, Prozac 20 mg daily and Zyprexa 50 mg at bedtime. Schedule follow-up appointment with [facility].
--- NOTE | 2019-11-30 18:55 | P.PN ---
Subjective Progress Note Date: 11/30/19 Patient was seen earlier today before her discharge. Patient states she is feeling much better. Patient still confused about her drinking, and the time of onset of these tremors. Objective - Vital Signs Vital signs: Vital Signs Temp 98.4 F 11/30/19 11:32 Pulse 88 11/30/19 11:32 Resp 16 11/30/19 11:32 BP 122/71 11/30/19 11:32 Pulse Ox 95 11/30/19 11:32 Intake & Output 11/29/19 11/30/19 11/30/19 18:59 06:59 18:59 Intake Total 300 300 Output Total 350 Balance 300 -50 Weight 60 kg Intake: Intake, IV Titration 300 Amount Sodium Chloride 0.9% 1, 300 000 ml @ 75 mls/hr IV . [id number] MARKUS Rx#:[id number] Oral 300 Output: Urine 350 Other: Voiding Method Toilet # Voids 3 1 3 - Exam Nonfocal. Patient continues to have mild to moderate tremors of outstretched hands, right worse than left. Patient has tremors of finger to nose testing bilaterally. No significant tremors at rest noted today. She does have tremors at rest of lower extremities. Tone is normal. 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 Patient has long-standing history of alcoholism, which probably is contributing to these tremors. Patient also states that she quit drinking few days ago, therefore there may be some component of withdrawal at this time. Rule out hyperthyroidism, rule out underlying essential tremors. Patient is also on olanzapine, which can produce parkinsonian tremor. Patient does have some component of resting tremor as well although predominant tremor is essential type. No other clinical features of Parkinson's disease or parkinsonism. Patient also consumed CBD liquid, which may have aggravated the tremors. * Cognitive impairment, confabulation. Rule out thiamine deficiency. Rule out alcoholic dementia. Plan: * Patient's TSH is 0.976, B12 425, folate 6.8, ceruloplasmin 24.7 normal. RPR negative. Urine drug screen positive for benzodiazepine. MMA, B6, B1 level still pending. Patient is being discharged home. She was recommended to follow up with her primary physician to follow-up on pending blood test r esults. * Continue thiamine 100 mg daily, folate 1 mg daily and multivitamins. * I would suggest patient follow up with neurologist as an outpatient. She may benefit from ANDRIA scan to further identify the type of tremors. * Suggest abstinence from alcoholism. * Clear for discharge with the above recommendations.
--- NOTE | 2019-12-02 10:32 | P.DS ---
Providers Date of admission: 11/28/19 23:23 Expected date of discharge: 11/30/19 Attending physician: Keturah Orellana MD Consults: 11/28/19 23:28 Consult Physician Stat Consulting Provider: Jose Juan Zelaya Consult Reason/Comments: schizophrenia, bipolar Do you want consulting provider notified?: Yes, Notify in am 11/29/19 08:05 Consult Physician Routine Consulting Provider: Nikki Brown Consult Reason/Comments: tremors Do you want consulting provider notified?: Yes Primary care physician: Codey Marley [facility] Course: This is a 69-year-old female patient of Dr. Marley with past medical history of hypertension, dementia, bipolar disorder, schizophrenia. Patient had a previous hospitalization to the mental health unit in 2013 which time she was treated for psychosis, dementia with behavioral disturbances. Patient gives history that she saw Dr. Humphrey "a long time ago". She had an overdose in 1998. She follows with Dr. Marley on a regular basis and she states that he prescribes Zyprexa. There apparently was an air in the pharmacy in July and patient did not receive her Zyprexa for 2 months. This was corrected on November 08 the patient was restarted on Zyprexa however her dose was not gradually increased to therapeutic levels. Despite starting back on Zyprexa, patient continued to have tremors and confusion. Patient is now hearing voices that are telling her to kill herself. Patient states that she would take pills if she were going to do this as she has tried overdose in the past. Patient was seen in the emergency center and she has been afebrile, initial blood pressure 149/85, pulse ox 97% on room air, heart rate 118. WBC 5, hemoglobin 12.6, platelet count 141. Sodium 134, potassium 2.7, chloride 99, CO2 26, BUN 9, creatinine 0.72. Magnesium 1.0, AST 42, total protein 6.1, albumin 3.7. Urinalysis clear with nitrate and leukoesterase negative. EKG reveals sinus rhythm with no acute ST changes. Magnesium and potassium were replaced and patient was started on IV fluids, admitted to the [facility] floor, psychiatry consult in place. Consult added for neurology regarding tremor. Patient currently is hearing voices. She continues to complain of weakness shakiness and frequent falls. She was recently treated for UTI with antibiotics and took all of her course in a matter of couple days. Patient does relate that she drinks alcohol to the point of passing out about one time per week. puppy sitter is at the bedside. 11/29: Patient has been seen by neurology and started on thiamine and folate along with multivitamin with recommendations for outpatient follow-up with neurologist. Patient may benefit from ANDRIA scan to identify type of tremors. Ceruloplasmin 24.7, vitamin B6 6, methylmalonic acid 0.47, folate level 6.8, c opper 815. Patient was seen yesterday by Dr. Hernandez from psychiatry with recommendations for Xanax or 0.5 mg 3 times daily when necessary for anxiety, Prozac 20 mg daily, Zyprexa 15 mg at bedtime. Patient remains in suicide precautions with the safety investigator at the bedside. According to patient's nurse, she has had significant improvement after receiving Zyprexa yesterday. She has been afebrile, heart rate 92, blood pressure 150/85, pulse ox 96% on room air. Urine drug screen was positive for benzodiazepines. Treponema pallidum antibody nonreactive and COVID-19 not detected. On nursing recontacted psychiatrist and patient was cleared for discharge home. She was also cleared for discharge by neurology. Assessment and Plan 1. Acute psychoses with hallucinations and suicidal ideation. 2. History of bipolar disorder, possible schizophrenia. 3. Generalized weakness, frequent falls. 4. Electrolyte abnormalities with hypokalemia and hypomagnesemia, status post replacement. 5. Hypertension. 6. Chronic gout. 7. Gastroesophageal reflux disease. 8. COVID-19 infection not present. Discharge plan: Home Impression and plan of care have been directed as dictated by the signing physician. Cheyanne Tena nurse practitioner acting as scribe for signing physician. Patient Condition at Discharge: Good Plan - Discharge Summary Discharge Rx Participant: No New Discharge Prescriptions: New Folic Acid 1 mg PO DAILY tab Multivitamins, Thera [Multivitamin (formulary)] 1 each PO DAILY tab Thiamine [Vitamin B-1] 100 mg PO DAILY tab Continue OLANZapine 15 mg PO HS Montelukast Sodium [Singulair] 10 mg PO HS Losartan Potassium 100 mg PO DAILY amLODIPine [Norvasc] 5 mg PO DAILY FLUoxetine HCL [PROzac] 20 mg PO DAILY Allopurinol [Zyloprim] 100 mg PO BID ALPRAZolam [Xanax] 0.5 mg PO TID PRN PRN Reason: Anxiety Omeprazole 20 mg PO BID Potassium Chloride ER [K-Dur 20] 20 meq PO DAILY #2 tab Ibuprofen [Motrin] 800 mg PO Q6HR PRN PRN Reason: Pain Iron 2 tablet PO DAILY Vitamin B Complex 1 each PO DAILY [place]-3 Fatty Acids/Fish Oil [Fish Oil 1,000 mg Softgel] 1,000 cap PO DAILY Ergocalciferol (Vitamin D2) [Vitamin D2] 2,000 units PO DAILY Discharge Medication List ALPRAZolam [Xanax] 0.5 mg PO TID PRN 11/18/19 [History] Allopurinol [Zyloprim] 100 mg PO BID 11/18/19 [History] FLUoxetine HCL [PROzac] 20 mg PO DAILY 11/18/19 [History] Losartan Potassium 100 mg PO DAILY 11/18/19 [History] Montelukast Sodium [Singulair] 10 mg PO HS 11/18/19 [History] OLANZapine 15 mg PO HS 11/18/19 [History] Omeprazole 20 mg PO BID 11/18/19 [History] amLODIPine [Norvasc] 5 mg PO DAILY 11/18/19 [History] Potassium Chloride ER [K-Dur 20] 20 meq PO DAILY #2 tab 11/21/19 [Rx] Ergocalciferol (Vitamin D2) [Vitamin D2] 2,000 units PO DAILY 11/29/19 [History] Ibuprofen [Motrin] 800 mg PO Q6HR PRN 11/29/19 [History] Iron 2 tablet PO DAILY 11/29/19 [History] [place]-3 Fatty Acids/Fish Oil [Fish Oil 1,000 mg Softgel] 1,000 cap PO DAILY 11/29/19 [History] Vitamin B Complex 1 each PO DAILY 11/29/19 [History] Folic Acid 1 mg PO DAILY tab 11/30/19 [Rx] Multivitamins, Thera [Multivitamin (formulary)] 1 each PO DAILY tab 11/30/19 [Rx] Thiamine [Vitamin B-1] 100 mg PO DAILY tab 11/30/19 [Rx] Follow up Appointment(s)/Referral(s): Teresa Veliz MD [REFERRING] - 1 Week (Neurologist for a tremor work-up -- you are being put on a new patient waiting list-they stated the list is going fast and they should give you a call next week.) Codey Marley MD [Primary Care Provider] - 12/01/19 11:30 am (This is a tele- health visit [email or web address] if you cannot do this vistit and when an inpatient visit call office to reschedule.) Patient Instructions/Handouts: Hypokalemia (DC), Fall Prevention for Older Adults (DC), Hypomagnesemia (DC) Discharge Disposition: HOME SELF-CARE
== END 2019-11-30 16:18 | disposition home or self-care (01) | DRG 885 ==
LOC: EC 21:07 → 5NMEDONC 23:23
PROVIDERS: ADMIT Internal Medicine; ATTEND Internal Medicine
DX: F23 Brief psychotic disorder (principal); F03.91 Unspecified dementia, unspecified severity, with behavioral disturbance; R45.851 Suicidal ideations; F13.239 Sedative, hypnotic or anxiolytic dependence with withdrawal, unspecified; Z11.59 Encounter for screening for other viral diseases; E87.6 Hypokalemia; F31.9 Bipolar disorder, unspecified; F10.20 Alcohol dependence, uncomplicated; E83.42 Hypomagnesemia; I10 Essential (primary) hypertension; F41.9 Anxiety disorder, unspecified; R29.6 Repeated falls; R53.1 Weakness; M1A.9XX0 Chronic gout, unspecified, without tophus (tophi); K21.9 Gastro-esophageal reflux disease without esophagitis; R41.89 Other symptoms and signs involving cognitive functions and awareness; R41.843 Psychomotor deficit; Z71.3 Dietary counseling and surveillance; Z79.899 Other long term (current) drug therapy; Z90.49 Acquired absence of other specified parts of digestive tract; Z91.5 Personal history of self-harm; Z91.14 Patient's other noncompliance with medication regimen; Z87.440 Personal history of urinary (tract) infections; Z82.49 Family history of ischemic heart disease and other diseases of the circulatory system; Z81.1 Family history of alcohol abuse and dependence; Z83.3 Family history of diabetes mellitus
CPT/HCPCS: 36415; 80053; 80306; 81003; 82390; 82525; 82746; 83735; 83921; 84132; 84207; 84425; 85025; 86780; 93005; 96365; 96366; 99285

== ENCOUNTER → 2020-02-10 | Outpatient (CLI) | payer MEDICARE, OTHER ==
--- NOTE | 2020-02-10 16:00 | US ---
EXAMINATION TYPE: US carotid duplex BILAT DATE OF EXAM: 02/10/2020 COMPARISON: NONE CLINICAL HISTORY: R26.9 Abnormal Gait, G25.2 tremors. EXAM MEASUREMENTS: RIGHT: Peak Systolic Velocity (PSV) cm/sec ----- Right CCA: 83.7 ----- Right ICA: 88.1 ----- Right ECA: 60.5 ICA/CCA ratio: 1.1 RIGHT: End Diastole cm/sec ----- Right CCA: 15.4 ----- Right ICA: 22.7 ----- Right ECA: 12.5 LEFT: Peak Systolic Velocity (PSV) cm/sec ----- Left CCA: 66.8 ----- Left ICA: 82.6 ----- Left ECA: 50.3 ICA/CCA ratio: 1.2 LEFT: End Diastole cm/sec ----- Left CCA: 16.3 ----- Left ICA: 21.5 ----- Left ECA: 8.9 VERTEBRALS (direction of flow): Right Vertebral: Antegrade Left Vertebral: Antegrade Rhythm: Arrhythmia Minimal plaque visualized. No elevated velocities IMPRESSION: No evidence for hemodynamically significant stenosis Criteria for Assigning % of Stenosis / Diameter reduction (Estimation based on the indirect measurements of the internal carotid artery velocities (ICA PSV). 1. Normal (no stenosis)=ICA PSV < 125 cm/s: ratio < 2.0: ICA EDV<40 cm/s. 2. Less than 50% stenosis=ICA PSV < 125 cm/s: ratio < 2.0: ICA EDV<40 cm/s. 3. 50 to 69% stenosis=ICA PSV of 125 to 230 cm/s: ration 2.0 ? 4.0: ICA EDV 40-100 cm/s. 4. Greater than 70% stenosis to near occlusion= ICA PSV > 230 cm/s: ratio > 4.0: ICA EDV > 100 cm/s. 5. Near occlusion= ICA PSV velocities may be low or undetectable: variable ratio and ICA EDV. 6. Total occlusion=unable to detect flow.
== END | disposition home or self-care (01) ==
LOC: RADUSWWP 15:24
PROVIDERS: ATTEND Psychiatry & Neurology Neurology
DX: G25.2 Other specified forms of tremor (principal); R26.9 Unspecified abnormalities of gait and mobility
CPT/HCPCS: 93880

== ENCOUNTER → 2020-03-15 | Outpatient (CLI) | payer MEDICARE, OTHER ==
--- NOTE | 2020-03-21 14:45 | HM ---
Baseline rhythm is sinus. Head patient had occasional APCs with brief runs of paroxysmal atrial tachycardia. The longest one consisted of 26 beats at a rate of 122. The shortest consist of about 45 beats. Rare PVC noted. Patient did not maintain a diary did not report any symptoms. Final impression #1. Sinus rhythm. #2 occasional APCs with short runs of PAT, the longest consisting of 26 beats with a heart rate of about 123. #3. Patient did not maintain a diary. MTDD
== END | disposition home or self-care (01) ==
LOC: RADECHMAIN 11:56
PROVIDERS: ATTEND Psychiatry & Neurology Neurology
DX: I49.9 Cardiac arrhythmia, unspecified (principal)
CPT/HCPCS: 93225; 93226

== ENCOUNTER 2020-11-17 16:22 | Emergency (ER) | payer OTHER, MEDICARE ==
[2020-11-17 16:38] VITALS: RESP 18; TEMP 98
[2020-11-17] MEDS ORDERED: HYDROmorphone 1 MG/ML 1 ML SYRINGE IVP STA (16:52)
[2020-11-17 17:25] LABS: Appearance,Urine Clear (Clear); Basophils # (A) 0.1 k/uL (0-0.2); Basophils % (A) 1 %; Bilirubin,Urine Negative (Negative); Blood,Urine Negative (Negative); Color,Urine Light Yellow; Eosinophils # (A) 0.2 k/uL (0-0.7); Eosinophils % (A) 3 %; Glucose,Urine (UA) Negative (Negative); HCT 41.7 % (34.0-46.0); Ketones,Urine Negative (Negative); Leukocyte Esterase,Urine Negative (Negative); Lymphocytes # (A) 1.1 k/uL (1.0-4.8); Lymphocytes % (A) 20 %; MCHC 35.9 g/dL (31.0-37.0); MCV 100.4 fL (80.0-100.0); Mean Platelet Volume 8.5; Monocytes # (A) 0.3 k/uL (0-1.0); Monocytes % (A) 5 %; Neutrophils # (A) 3.8 k/uL (1.3-7.7); Neutrophils % (A) 69 %; Nitrite,Urine Negative (Negative); Platelet Count 119 k/uL (150-450); Protein,Urine Negative (Negative); RBC 4.15 m/uL (3.80-5.40); RDW 12.4 % (11.5-15.5); Specific Gravity,Urine 1.002 (1.001-1.035); Urobilinogen,Urine <2.0 mg/dL (<2.0); WBC 5.5 k/uL (3.8-10.6)
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
[2020-11-17 17:41] LABS: Prothrombin Time 10.4 sec (9.0-12.0)
[2020-11-17 17:57] LABS: Albumin 4.9 g/dL (3.5-5.0); Chloride 98 mmol/L (98-107); Glucose 109 mg/dL (74-99); Total Protein 7.4 g/dL (6.3-8.2)
--- NOTE | 2020-11-17 17:57 | XR ---
EXAMINATION TYPE: XR lumbar spine 2 or 3V DATE OF EXAM: 11/17/2020 COMPARISON: 01/20/2014 HISTORY: Back pain TECHNIQUE: 3 views FINDINGS: Lumbar vertebra show fairly normal alignment. There is a few millimeter anterior subluxatio n of L4. There is minor spurring of the endplates. There is no compression fracture. Facet joints are intact. There is no evidence of focal bone destruction. The sacroiliac joints appear intact. There a re clips from cholecystectomy. IMPRESSION: There is some L4-5 mild subluxation consistent with degenerative disease and has progress ed compared to old exam. No acute fracture seen.
[2020-11-17 17:59] LABS: ALT 91 U/L (4-34); AST 81 U/L (14-36); African American GFR (CKD) >90 (>60 ml/min/1.73 sqM); Alkaline Phosphatase 106 U/L (38-126); Anion Gap 11 mmol/L; Blood Urea Nitrogen 7 mg/dL (7-17); Calcium 9.8 mg/dL (8.4-10.2); Carbon Dioxide 23 mmol/L (22-30); Non-African American GFR(CKD) >90 (>60 ml/min/1.73 sqM); Potassium 3.8 mmol/L (3.5-5.1); Sodium 132 mmol/L (137-145); Total Bilirubin 0.7 mg/dL (0.2-1.3)
--- NOTE | 2020-11-17 17:59 | XR ---
EXAMINATION TYPE: XR pelvis AP view DATE OF EXAM: 11/17/2020 COMPARISON: NONE HISTORY: Pain TECHNIQUE: Single view FINDINGS: The pelvic ring is intact. Proximal femurs and hip joints are intact. There are numerous ph leboliths in the pelvis. Sacroiliac joints are intact. IMPRESSION: No acute abnormality of the pelvis.
--- NOTE | 2020-11-17 18:04 | XR ---
EXAMINATION TYPE: XR chest 1V portable DATE OF EXAM: 11/17/2020 COMPARISON: 11/07/2017 HISTORY: Trauma. Chest pain. TECHNIQUE: Single view FINDINGS: There is no heart failure nor confluent pneumonic infiltrate. Costophrenic angles are clear . There are no hilar masses. There are chest leads. IMPRESSION: No active cardiopulmonary disease. Normal heart. No change.
[2020-11-17] MEDS ORDERED: ACET/COD 300 MG/30 MG STARTER PACK 6 TAB BTL PO STA (18:13)
[2020-11-17 18:58] VITALS: BP 163/94; PULSE 89
== END 2020-11-17 18:32 | disposition home or self-care (01) ==
LOC: EC 16:22
DX: S39.012A Strain of muscle, fascia and tendon of lower back, initial encounter (principal); I10 Essential (primary) hypertension; K21.9 Gastro-esophageal reflux disease without esophagitis; Z79.899 Other long term (current) drug therapy; V89.2XXA Person injured in unspecified motor-vehicle accident, traffic, initial encounter; Y92.410 Unspecified street and highway as the place of occurrence of the external cause
CPT/HCPCS: 99284; 36415; 93005; 80053; 84484; 85025; 85610; 85730; 81003; 72100; 72170; 71045; 96374; J1170

== ENCOUNTER → 2023-11-13 | Outpatient (CLI) | payer MEDICARE, OTHER ==
--- NOTE | 2023-11-14 19:04 | MM ---
Reason for Exam: Screening (asymptomatic). Last mammogram was performed 9 year(s) and 4 month(s) ago. Patient History: Menarche at age 16. First Full-Term at age 20. Postmenopausal. Risk Values: Kylie 5 year model risk: 1.2%. NCI Lifetime model risk: 3.0%. Prior Study Comparison: 02/07/2012 Screening Mammogram, [facility]. 02/09/2013 Screening Mammogram, [facility]. 07/22/2014 Bilateral Screening Mammogram, [facility]. Tissue Density: There are scattered areas of fibroglandular density. Findings: Analyzed By CAD. The pattern is symmetrical. Pattern is stable. No suspicious groups of microcalcifications, spiculated or lobular masses, architectural distortion or other secondary signs of malignancy are mammographically apparent. Overall Assessment: Benign, BI-RAD 2 Management: Screening Mammogram of both breasts in 1 year. A negative mammogram report should not preclude additional follow up of suspicious palpable abnormalities. Patient should continue monthly self breast exam. A clinical breast exam by your physician is recommended on an annual basis and results should be correlated with mammographic findings. Note on Kylie scores and lifetime risk: 1. A Kylie score greater than 3% is considered moderate risk. If this is the case, consider specialist referral to assess eligibility for a risk reducing agent. 2. If overall lifetime risk for the development of breast cancer is 20% or higher, the patient may qualify for future screening with alternating mammogram and breast MRI. Electronically signed and approved by: Jose Juan Edwards D.O. Radiologis
== END | disposition home or self-care (01) ==
LOC: RADMAMWWP 14:59
PROVIDERS: ATTEND Family Medicine
DX: Z12.31 Encounter for screening mammogram for malignant neoplasm of breast (principal); Z78.0 Asymptomatic menopausal state
CPT/HCPCS: 77063; 77067